=== PATIENT | male | born 1970 | race Caucasian/White ===

== ENCOUNTER 2017-12-18 11:47 | Observation (INO) | payer OTHER ==
[2017-12-18] MEDS ORDERED: Ondansetron 4 MG/2 ML SDV IVPUSH ONE (12:00)
[2017-12-18] MEDS ORDERED: Sodium Chloride 0.9% 1,000 ML IV ONE (12:00)
[2017-12-18] MEDS ORDERED: Aspirin 81 MG Tab.Chew PO ONE (12:16)
--- NOTE | 2017-12-18 12:16 | EDM.PDOC ---
ED HPI GENERAL MEDICAL PROBLEM - General Chief Complaint: Syncope Stated Complaint: VOMITING Time Seen by Provider: 12/18/17 11:59 Source of Information: Reports: Patient History Limitations: Reports: No Limitations - History of Present Illness INITIAL COMMENTS - FREE TEXT/NARRATIVE: HISTORY AND PHYSICAL: History of present illness: Patient is a 47-year-old male who presents to the emergency room today with complaints of dizziness, nausea and feeling of lightheaded. 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 Reports "I thought I was in a passout". Did have 1 episode of diarrhea. Since that time his symptoms have resolved but still feels "somewhat lightheaded". He denies any chest pain, shortness of breath, abdominal pain, fever or chills. Has not received the influenza vaccine this year. Patient does have a history of cardiac bypass, MT, hypertension, type 2 diabetes. Review of systems: As per history of present illness and below otherwise all systems reviewed and negative. Past medical history: As per history of present illness and as reviewed below otherwise noncontributory. Surgical history: As per history of present illness and as reviewed below otherwise noncontributory. Social history: No reported history of drug or alcohol abuse. Family history: As per history of present illness and as reviewed below otherwise noncontributory. Physical exam: HEENT: Atraumatic, normocephalic, pupils reactive, negative for conjunctival pallor or scleral icterus, mucous membranes moist, throat clear, neck supple, nontender, trachea midline. Lungs: Clear to auscultation, breath sounds equal bilaterally, chest nontender. Heart: S1S2, regular, negative for clicks, rubs, or JVD. Abdomen: Soft, nondistended, nontender. Negative for masses or hepatosplenomegaly. Negative for costovertebral tenderness. Pelvis: Stable nontender. Genitourinary: Deferred. Rectal: Deferred. Extremities: Atraumatic, negative for cords or calf pain. Neurovascular unremarkable. Neuro: Awake, alert, oriented. Cranial nerves II through XII unremarkable. Cerebellum unremarkable. Motor and sensory unremarkable throughout. Exam nonfocal. Patient denies any chest pain or shortness of breath. Blood pressure is 158/ 109. He states he has not been taking his medications for the past week, noncompliant. History of smoking, one pack per day, 20 years. Denies any drug or alcohol abuse. Blood pressure has come down to within normal limits. Lab work, x-ray of the chest and EKG are unremarkable. Did offer the patient admission. The states she would like him to stay overnight as she does not feel comfortable taking him home. Patient is pain-free vital signs are stable. Dr. Rivas was consult on this case and is agreeable to keep him for observation with telemetry. Diagnostics: CBC, CMP, troponin, EKG, 1 view chest x-ray Therapeutics: IV fluid, Zofran Impression: #1 Near syncope #2 History of coronary artery disease Plan: 1. Observation admission with telemetry Definitive disposition and diagnosis as appropriate pending reevaluation and review of above. Onset: Today Duration: Hour(s): Location: Reports: Chest - Related Data Allergies Allergy/AdvReac Type Severity Reaction Status Date / Time No Known Allergies Allergy Verified 12/18/17 11:58 Home Meds: Home Meds atorvaSTATin [Lipitor] 40 mg PO BEDTIME #20 tab 12/19/17 [Rx] Past Medical History HEENT History: Reports: None Cardiovascular History: Reports: Hypertension, MT Respiratory History: Reports: None Gastrointestinal History: Reports: None Genitourinary History: Reports: Prostate Disorder Neurological History: Reports: Migraines Other Neuro History: trigeminal myalgia Psychiatric History: Reports: None Endocrine/Metabolic History: Reports: Diabetes, Type II Dermatologic History: Reports: None - Infectious Disease History Infectious Disease History: Reports: Chicken Pox, Influenza - Past Surgical History Cardiovascular Surgical History: Reports: Coronary Artery Bypass Musculoskeletal Surgical History: Reports: Arthroscopic Knee, Shoulder Surgery Social & Family History - Family History HEENT: Reports: Impaired Vision Cardiac: Reports: High Cholesterol, Hypertension Respiratory: Reports: Asthma OBGYN: Reports: Endocrine/Metabolic: Reports: Diabetes, type II Oncologic: Reports: Colon, Lung - Tobacco Use Smoking Status *Q: Current Every Day Smoker Years of Tobacco use: 20 Packs/Tins Daily: 1 Second Hand Smoke Exposure: No - Alcohol Use Days Per Week of Alcohol Use: 0 - Recreational Drug Use Recreational Drug Use: No Recreational Drug Type: Reports: Marijuana/Hashish Recreational Drug Use Frequency: Rarely ED ROS GENERAL - Review of Systems Review Of Systems: ROS reveals no pertinent complaints other than HPI. ED EXAM, NEURO - Physical Exam Exam: See Below (See dictation) Course - Vital Signs Last Recorded V/S: Last Vital Signs Temp 97.8 F 12/19/17 12:00 Pulse 77 12/19/17 12:00 Resp 18 12/19/17 12:00 BP 145/101 H 12/19/17 12:00 Pulse Ox 94 L 12/19/17 14:49 - Orders/Labs/Meds Labs: Laboratory Tests 12/18/17 12/18/17 12/18/17 Range/Units 12:15 12:15 12:15 WBC 9.70 (4.0-11.0) K/uL RBC 5.21 (4.50-5.90) M/uL Hgb 16.4 (13.0-17.0) g/dL Hct 46.9 (38.0-50.0) % MCV 90.0 (80.0-98.0) fL MCH 31.5 (27.0-32.0) pg MCHC 35.0 (31.0-37.0) g/dL RDW Std Deviation 41.8 (28.0-62.0) fl RDW Coeff of Liat 13 (11.0-15.0) % Plt Count 306 (150-400) K/uL MPV 10.00 (7.40-12.00) fL Neut % (Auto) 71.9 (48.0-80.0) % Lymph % (Auto) 22.4 (16.0-40.0) % [place] % (Auto) 4.5 (0.0-15.0) % Eos % (Auto) 0.7 (0.0-7.0) % Baso % (Auto) 0.5 (0.0-1.5) % Neut # (Auto) 7.0 H (1.4-5.7) K/uL Lymph # (Auto) 2.2 (0.6-2.4) K/uL [place] # (Auto) 0.4 (0.0-0.8) K/uL Eos # (Auto) 0.1 (0.0-0.7) K/uL Baso # (Auto) 0.1 (0.0-0.1) K/uL Nucleated RBC % 0.0 /100WBC Nucleated RBCs # 0 K/uL Sodium 138 (136-146) mmol/L Potassium 4.2 (3.5-5.1) mmol/L Chloride 107 (98-110) mmol/L Carbon Dioxide 21 (21-31) mmol/L BUN 15 (6.0-23.0) mg/dL Creatinine 0.8 (0.6-1.5) mg/dL Est Cr Clr Drug Dosing 101.90 mL/min Estimated GFR (MDRD) > 60.0 ml/min Glucose 128 H (60-110) mg/dL Hemoglobin A1c 7.0 H (0.0-6.0) % Calcium 9.3 (8.8-10.8) mg/dL Total Bilirubin 0.3 (0.1-1.5) mg/dL AST 15 (5-40) IU/L ALT 17 (8-54) IU/L Alkaline Phosphatase 103 (40-150) Troponin I < 0.10 (0.0-0.29) NG/ML Total Protein 7.4 (6.0-8.0) g/dL Albumin 4.3 (3.5-5.0) g/dL Globulin 3.1 (2.0-3.5) g/dL Albumin/Globulin Ratio 1.4 (1.3-2.8) Amylase 51 (10-90) U/L Lipase 21 (7-80) U/L Meds: Medications Discontinued Medications Generic Name Dose Route Start Last Admin Trade Name Freq PRN Reason Stop Dose Admin Acetaminophen 650 mg 12/18/17 14:49 12/19/17 12:23 Tylenol PO 650 mg Q4H PRN Administration Pain (Mild 1-3)/fever Aspirin 324 mg 12/18/17 12:16 12/18/17 12:33 Aspirin PO 12/18/17 12:17 324 mg ONETIME ONE Administration Enoxaparin Sodium 40 mg 12/18/17 15:00 12/18/17 16:43 Lovenox SUBCUT 40 mg Q24H ELEANOR Administration Sodium Chloride 1,000 mls @ 999 mls/hr 12/18/17 12:00 12/18/17 12:41 Normal Saline IV 12/18/17 13:00 999 mls/hr STAT ONE Administration Sodium Chloride 1,000 mls @ 100 mls/hr 12/18/17 15:00 12/19/17 11:57 Normal Saline IV 100 mls/hr ASDIRECTED ELEANOR Administration Insulin Aspart 0 unit 12/18/17 17:00 12/19/17 11:39 Novolog SUBCUT Not Given TIDAC [facility] Protocol Morphine Sulfate 2 mg 12/18/17 14:49 Morphine IVPUSH 12/19/17 14:51 Q2H PRN Pain (severe 7-10) Ondansetron HCl 4 mg 12/18/17 12:00 12/18/17 12:43 Zofran IVPUSH 12/18/17 12:01 4 mg ONETIME ONE Administration Ondansetron HCl 4 mg 12/18/17 14:49 Zofran Odt PO Q4H PRN nausea, able to take PO Ondansetron HCl 4 mg 12/18/17 14:49 Zofran IVPUSH Q4H PRN Nausea Temazepam 15 mg 12/18/17 14:49 Restoril PO BEDTIME PRN Sleep Departure - Departure Time of Disposition: 13:02 Disposition: Refer to Observation Clinical Impression: Near syncope, History of coronary artery disease - Discharge Information
[2017-12-18 12:40] LABS: CHLORIDE,CL 107 mmol/L (98-110); SODIUM,NA 138 mmol/L (136-146)
--- NOTE | 2017-12-18 14:18 | PCM.HP ---
H&P History of Present Illness - General Date of Service: 12/18/17 Admit Problem/Dx: Near syncope - History of Present Illness Initial Comments - Free Text/Narative: 47-year-old male presenting to emergency department with chief complaint of dizziness, lightheadedness, and nausea and vomiting 1 with past medical history of PA, CABG 5, hypertension, and type 2 diabetes Patient states that when he went to work at 0400 this morning he started to feel nauseous with some dizziness and blurred vision. He felt as though he may pass out. States that he called his who came and picked him up. On his way back to [facility] he did have one episode of emesis. Subsequently his brought him to the emergency department for further evaluation. States that he has had some achy joints in his wrists and elbows. Denies any chest pain or shortness of breath. He did have a PA approximately 2 years ago where he received a CABG 5 in [place]. 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 He does see Dr. Callejas as his primary care physician. He reports no associated diaphoresis but has had a cough with pale whitish sputum production. He also states that he has had heartburn over the past 2 weeks and has been taking Pepcid for this. He has a history of migraines for which she takes Excedrin 4 tabs up to 3-4 times a day sometimes. Patient also reports paroxysmal nocturnal dyspnea, orthopnea, but no pedal edema or shortness of breath with exercise. He did have one episode of diarrhea this morning. Patient is a current [id number] smoker. Denies any illicit drug use. Currently denies any chest pain, palpitations, shortness of breath, syncopal episodes, or focal neurologic deficits. In the emergency department: CBC, CMP, chest x-ray, vital signs were all unremarkable. Troponin was negative at 12:15. Influenza screen was negative. I did add a A1c onto the labs which was elevated at 7.0., Amylase and lipase were unremarkable. He was given 324 mg ASA as well as 4 mg IV Zofran and 1 L normal saline in the emergency department. Patient was admitted for near syncope. - Related Data Allergies/Adverse Reactions: Allergies Allergy/AdvReac Type Severity Reaction Status Date / Time No Known Allergies Allergy Verified 12/18/17 11:58 Home Medications: Home Meds . [Unable to Verify Home Med List] 12/18/17 [History] Past Medical History HEENT History: Reports: None Cardiovascular History: Reports: Hypertension, PA Respiratory History: Reports: None Gastrointestinal History: Reports: None Genitourinary History: Reports: Prostate Disorder Neurological History: Reports: Migraines Other Neuro History: trigeminal myalgia Psychiatric History: Reports: None Endocrine/Metabolic History: Reports: Diabetes, Type II Dermatologic History: Reports: None - Infectious Disease History Infectious Disease History: Reports: Chicken Pox, Influenza - Past Surgical History Cardiovascular Surgical History: Reports: Coronary Artery Bypass Musculoskeletal Surgical History: Reports: Arthroscopic Knee, Shoulder Surgery Social & Family History - Family History HEENT: Reports: Impaired Vision Cardiac: Reports: High Cholesterol, Hypertension Respiratory: Reports: Asthma OBGYN: Reports: Endocrine/Metabolic: Reports: Diabetes, type II Oncologic: Reports: Colon, Lung - Tobacco Use Smoking Status *Q: Current Every Day Smoker Years of Tobacco use: 20 Packs/Tins Daily: 1 Second Hand Smoke Exposure: No - Alcohol Use Days Per Week of Alcohol Use: 0 - Recreational Drug Use Recreational Drug Use: No Recreational Drug Type: Reports: Marijuana/Hashish Recreational Drug Use Frequency: Rarely H&P Review of Systems - Review of Systems: Review Of Systems: See Below General: Denies: Fever, Chills, Weakness, Fatigue HEENT: Denies: Dysphasia, Headaches, Sinus Congestion, Sore Throat Pulmonary: Reports: Cough, Sputum. Denies: Shortness of Breath, Wheezing, Pleuritic Chest Pain Cardiovascular: Reports: Dyspnea on Exertion, Lightheadedness. Denies: Chest Pain, Palpitations, Syncope Gastrointestinal: Reports: Diarrhea, Nausea, Vomiting. Denies: Abdominal Pain, Black Stool, Bloody Stool Genitourinary: Denies: Dysuria, Hematuria Musculoskeletal: Denies: Neck Pain, Leg Pain Skin: Denies: Cyanosis Psychiatric: Denies: Confusion Neurological: Reports: Dizziness. Denies: Confusion, Headache Hematologic/Lymphatic: Denies: Anemia Exam - Exam Exam: See Below - Vital Signs Vital Signs: Last Vital Signs Temp 97.0 F 12/18/17 12:00 Pulse 79 12/18/17 12:44 Resp 18 12/18/17 12:44 BP 135/93 H 12/18/17 12:44 Pulse Ox 97 12/18/17 12:44 Weight: 87 kg - Exam Quality Assessment: DVT Prophylaxis General: Alert, Oriented, Cooperative HEENT: Conjunctiva Clear, EACs Clear, EOMI, Hearing Intact, Mucosa Moist & [place] , Nares Patent, Normal Nasal Septum, Posterior Pharynx Clear, PERRLA Neck: Supple, Trachea Midline, 2 Lungs: Clear to Auscultation, Normal Respiratory Effort Cardiovascular: Regular Rate, Regular Rhythm, Normal S1, Normal S2, Systolic Murmur GI/Abdominal Exam: Normal Bowel Sounds, Soft, Non-Tender, No Organomegaly, No Distention (Male) Exam: Deferred Back Exam: Normal Inspection, Full Range of Motion, NT Extremities: Normal Inspection, Normal Range of Motion, Non-Tender, No Pedal Edema, Normal Capillary Refill Peripheral Pulses: 2+: Radial (L), Radial (R), Posterior Tibial (L), Posterior Tibial (R), Dorsalis Pedis (L), Dorsalis Pedis (R) Skin: Warm, Dry, Intact Neurological: Cranial Nerves Intact Neuro Extensive - Mental Status: Alert, Oriented x3, Normal Mood/Affect, Normal Cognition Neuro Extensive - Motor, Sensory, Reflexes: CN II-XII Intact Psychiatric: Alert, Normal Affect, Normal Mood - Patient Data Result Diagrams: 12/18/17 12:15 12/18/17 12:15 *Q Meaningful Use (ADM) - VTE *Q VTE Criteria *Q: - Stroke *Q Stroke Criteria *Q: - AMI *Q AMI Criteria *Q: - Problem List (1) S/P coronary artery bypass graft x 5 SNOMED Code(s): 031380218 ICD Code: Z95.1 - PRESENCE OF AORTOCORONARY BYPASS GRAFT Status: Chronic Priority: Medium Current Visit: Yes (2) Type 2 diabetes mellitus SNOMED Code(s): 06557426 ICD Code: E11.9 - TYPE 2 DIABETES MELLITUS WITHOUT COMPLICATIONS Status: Chronic Priority: Medium Current Visit: Yes Qualifiers: Diabetes mellitus complication status: without complication Diabetes mellitus intermodal truck driver insulin use: without alf use Qualified Code(s): E11.9 - Type 2 diabetes mellitus without complications (3) History of coronary artery disease SNOMED Code(s): 645659063 ICD Code: Z86.79 - PERSONAL HISTORY OF OTHER DISEASES OF THE CIRCULATORY SYSTEM Status: Chronic Priority: Medium Current Visit: Yes (4) Near syncope SNOMED Code(s): 637824106 ICD Code: R55 - SYNCOPE AND COLLAPSE Status: Acute Priority: High Current Visit: Yes (5) History of PA (myocardial infarction) SNOMED Code(s): 936618195 ICD Code: I25.2 - OLD MYOCARDIAL INFARCTION Status: Chronic Priority: Medium Current Visit: Yes (6) Hypertension SNOMED Code(s): 85243321 ICD Code: I10 - ESSENTIAL (PRIMARY) HYPERTENSION Status: Chronic Priority : Medium Current Visit: Yes Qualifiers: Hypertension type: essential hypertension Qualified Code(s): I10 - Essential (primary) hypertension Problem List Initiated/Reviewed/Updated: Yes Assessment/Plan Comment:: 47-year-old male admitted 12/18/17 for near syncope with past medical history of PA, CABG 5, hypertension, and type 2 diabetes. Near syncope: Patient appears to be somewhat dehydrated on exam. Influenza was negative. Likely gastroenteritis leading to volume depletion and near syncopal episode. Secondary to patient's past medical history we will place on telemetry and trend troponins as he states that he had similar symptoms when he had his PA in the past. Initial troponin negative and no signs acute ischemia on ECG. Reports no chest pain, palpitations, shortness breath at this time. Hypertension/PA/CABG 5: Patient appears not to be taking his home medications. He does see Dr. Callejas as his PCP but has not seen a music education adjunct professor since his PA 2 years ago. We will get a lipid panel as well as trend troponins and monitor on telemetry. Patient does have symptoms of orthopnea, paroxysmal nocturnal dyspnea and has significant cardiac history. We will get an echocardiogram to assess for possible heart failure which could've also contributed to his near syncopal event. We will monitor his blood pressure and look to see what the medications he was on previously. We will restart medications as vol depletion is resolved and blood pressure returns to his normal levels. Type 2 diabetes: States that he does take a medication that he thinks his metformin. Did get an A1c which was 7.0. Will [address] on insulin sliding scale low -dose. May have diabetic education come and talk with the patient. VTE: Lovenox, SCD Dispo: 1-2 days pending.
[2017-12-18] MEDS ORDERED: Ondansetron 4 MG Tab.DIS PO PRN (14:49)
[2017-12-18] MEDS ORDERED: Morphine 2 MG/ML Syringe IVPUSH PRN (14:49)
[2017-12-18] MEDS ORDERED: Ondansetron 4 MG/2 ML SDV IVPUSH PRN (14:49)
[2017-12-18] MEDS ORDERED: Temazepam 15 MG Cap PO PRN (14:49)
[2017-12-18] MEDS ORDERED: Enoxaparin 40 MG/0.4 ML Syringe SUBCUT SCH (15:00)
[2017-12-18] MEDS: Sodium Chloride 0.9% 1,000 ML IV SCH (15:30)
[2017-12-18] MEDS: Insulin Aspart 100 Units/ML 3 ML Pen SUBCUT SCH (21:51)
[2017-12-19] MEDS: Sodium Chloride 0.9% 1,000 ML IV SCH ×2 (01:49→11:57)
[2017-12-19] MEDS: Insulin Aspart 100 Units/ML 3 ML Pen SUBCUT SCH ×2 (06:38→11:39)
[2017-12-19 06:58] LABS: CHLORIDE,CL 110 mmol/L (98-110); SODIUM,NA 140 mmol/L (136-146)
[2017-12-19] MEDS: Acetaminophen 325 MG Tab PO PRN ×2 (08:24→12:23)
[2017-12-19 12:46] VITALS: BP 145/101
--- NOTE | 2017-12-19 13:23 | PCM.DCSUM1 ---
Discharge Summary - Discharge Data Discharge Date: 12/19/17 Discharge Disposition: Home, Self-Care 01 Condition: Good - Patient Summary/Data Hospital Course: 47-year-old male admitted for near syncope due to dehydration fromgastroenteritis He presented with one day history of of dizziness, lightheadedness, and nausea and vomiting. BMP, CBC and CXR were unremarkable. He received IV fluids with resoluiton of symptoms. He ruled out for acute coronary syndrome with seral negative cardiac enzymes and EKG. Due to his histoyr of of [place], CABG 5, hypertension, and type 2 diabetes he was restarted on a statin. He is being discharge to today to have follow up with [facility]. - Patient Instructions Diet: Heart Healthy Diet - Discharge Plan Prescriptions/Med Rec: atorvaSTATin [Lipitor] 40 mg PO BEDTIME #20 tab Home Medications: Home Meds atorvaSTATin [Lipitor] 40 mg PO BEDTIME #20 tab 12/19/17 [Rx] Patient Handouts: Near-Syncope, [id number] - Patient Data Vitals - Most Recent: Last Vital Signs Temp 36.6 C 12/19/17 12:00 Pulse 77 12/19/17 12:00 Resp 18 12/19/17 12:00 BP 145/101 H 12/19/17 12:00 Pulse Ox 94 L 12/19/17 12:00 Weight - Most Recent: 87 kg I&O - Last 24 hours: Intake & Output 12/18/17 12/19/17 12/19/17 22:59 06:59 14:59 Intake Total 1618 Output Total 400 Balance 1218 Lab Results - Last 24 hrs: Laboratory Results - last 24 hr 12/18/17 12/18/17 12/19/17 Range/Units 18:11 21:41 00:23 WBC (4.0-11.0) K/uL RBC (4.50-5.90) M/uL Hgb (13.0-17.0) g/dL Hct (38.0-50.0) % MCV (80.0-98.0) fL MCH (27.0-32.0) pg MCHC (31.0-37.0) g/dL RDW Std Deviation (28.0-62.0) fl RDW Coeff of Liat (11.0-15.0) % Plt Count (150-400) K/uL MPV (7.40-12.00) fL Neut % (Auto) (48.0-80.0) % Lymph % (Auto) (16.0-40.0) % [place] % (Auto) (0.0-15.0) % Eos % (Auto) (0.0-7.0) % Baso % (Auto) (0.0-1.5) % Neut # (Auto) (1.4-5.7) K/uL Lymph # (Auto) (0.6-2.4) K/uL [place] # (Auto) (0.0-0.8) K/uL Eos # (Auto) (0.0-0.7) K/uL Baso # (Auto) (0.0-0.1) K/uL Nucleated RBC % /100WBC Nucleated RBCs # K/uL Sodium (136-146) mmol/L Potassium (3.5-5.1) mmol/L Chloride (98-110) mmol/L Carbon Dioxide (21-31) mmol/L BUN (6.0-23.0) mg/dL Creatinine (0.6-1.5) mg/dL Est Cr Clr Drug Dosing mL/min Estimated GFR (MDRD) ml/min Glucose (60-110) mg/dL POC Glucose 76 (60-110) mg/dL Calcium (8.8-10.8) mg/dL Magnesium (1.5-2.3) mEq/L Troponin I < 0.10 < 0.10 (0.0-0.29) NG/ML Triglycerides (10-190) mg/dL Cholesterol (131-240) mg/dL LDL Cholesterol, Calc (60-180) mg/dL VLDL Cholesterol (5-55) mg/dL HDL Cholesterol (40-80) mg/dL Cholesterol/HDL Ratio (3.3-6.0) Urine Color Urine Appearance Urine pH (5.0-8.0) Ur Specific [place] (1.001-1.035) Urine Protein (NEGATIVE) mg/dL Urine Glucose (UA) (NEGATIVE) mg/dL Urine Ketones (NEGATIVE) mg/dL Urine Occult Blood (NEGATIVE) Urine Nitrite (NEGATIVE) Urine Bilirubin (NEGATIVE) Urine Urobilinogen (<2.0) EU/dL Ur Leukocyte Esterase (NEGATIVE) Urine RBC (0-2/HPF) Urine WBC (0-5/HPF) Ur Epithelial Cells (NONE-FEW) Urine Bacteria (NEGATIVE) 12/19/17 12/19/17 12/19/17 Range/Units 03:21 06:07 06:10 WBC 8.10 (4.0-11.0) K/uL RBC 5.01 (4.50-5.90) M/uL Hgb 15.6 (13.0-17.0) g/dL Hct 46.1 (38.0-50.0) % MCV 92.0 (80.0-98.0) fL MCH 31.1 (27.0-32.0) pg MCHC 33.8 (31.0-37.0) g/dL RDW Std Deviation 42.8 (28.0-62.0) fl RDW Coeff of Liat 13 (11.0-15.0) % Plt Count 265 (150-400) K/uL MPV 10.00 (7.40-12.00) fL Neut % (Auto) 52.6 (48.0-80.0) % Lymph % (Auto) 36.4 (16.0-40.0) % [place] % (Auto) 5.8 (0.0-15.0) % Eos % (Auto) 4.7 (0.0-7.0) % Baso % (Auto) 0.5 (0.0-1.5) % Neut # (Auto) 4.3 (1.4-5.7) K/uL Lymph # (Auto) 3.0 H (0.6-2.4) K/uL [place] # (Auto) 0.5 (0.0-0.8) K/uL Eos # (Auto) 0.4 (0.0-0.7) K/uL Baso # (Auto) 0.0 (0.0-0.1) K/uL Nucleated RBC % 0.0 /100WBC Nucleated RBCs # 0 K/uL Sodium (136-146) mmol/L Potassium (3.5-5.1) mmol/L Chloride (98-110) mmol/L Carbon Dioxide (21-31) mmol/L BUN (6.0-23.0) mg/dL Creatinine (0.6-1.5) mg/dL Est Cr Clr Drug Dosing mL/min Estimated GFR (MDRD) ml/min Glucose (60-110) mg/dL POC Glucose 92 (60-110) mg/dL Calcium (8.8-10.8) mg/dL Magnesium (1.5-2.3) mEq/L Troponin I (0.0-0.29) NG/ML Triglycerides (10-190) mg/dL Cholesterol (131-240) mg/dL LDL Cholesterol, Calc (60-180) mg/dL VLDL Cholesterol (5-55) mg/dL HDL Cholesterol (40-80) mg/dL Cholesterol/HDL Ratio (3.3-6.0) Urine Color YELLOW Urine Appearance CLEAR Urine pH 6.0 (5.0-8.0) Ur Specific [place] 1.010 (1.001-1.035) Urine Protein NEGATIVE (NEGATIVE) mg/dL Urine Glucose (UA) NEGATIVE (NEGATIVE) mg/dL Urine Ketones NEGATIVE (NEGATIVE) mg/dL Urine Occult Blood NEGATIVE (NEGATIVE) Urine Nitrite NEGATIVE (NEGATIVE) Urine Bilirubin NEGATIVE (NEGATIVE) Urine Urobilinogen 0.2 (<2.0) EU/dL Ur Leukocyte Esterase NEGATIVE (NEGATIVE) Urine RBC NONE SEEN (0-2/HPF) Urine WBC 0-1 (0-5/HPF) Ur Epithelial Cells NOT SEEN (NONE-FEW) Urine Bacteria FEW (NEGATIVE) 12/19/17 12/19/17 Range/Units 06:10 11:29 WBC (4.0-11.0) K/uL RBC (4.50-5.90) M/uL Hgb (13.0-17.0) g/dL Hct (38.0-50.0) % MCV (80.0-98.0) fL MCH (27.0-32.0) pg MCHC (31.0-37.0) g/dL RDW Std Deviation (28.0-62.0) fl RDW Coeff of Liat (11.0-15.0) % Plt Count (150-400) K/uL MPV (7.40-12.00) fL Neut % (Auto) (48.0-80.0) % Lymph % (Auto) (16.0-40.0) % [place] % (Auto) (0.0-15.0) % Eos % (Auto) (0.0-7.0) % Baso % (Auto) (0.0-1.5) % Neut # (Auto) (1.4-5.7) K/uL Lymph # (Auto) (0.6-2.4) K/uL [place] # (Auto) (0.0-0.8) K/uL Eos # (Auto) (0.0-0.7) K/uL Baso # (Auto) (0.0-0.1) K/uL Nucleated RBC % /100WBC Nucleated RBCs # K/uL Sodium 140 (136-146) mmol/L Potassium 4.2 (3.5-5.1) mmol/L Chloride 110 (98-110) mmol/L Carbon Dioxide 23 (21-31) mmol/L BUN 10 (6.0-23.0) mg/dL Creatinine 0.8 (0.6-1.5) mg/dL Est Cr Clr Drug Dosing 101.90 mL/min Estimated GFR (MDRD) > 60.0 ml/min Glucose 98 (60-110) mg/dL POC Glucose 138 H (60-110) mg/dL Calcium 8.6 L (8.8-10.8) mg/dL Magnesium 1.6 (1.5-2.3) mEq/L Troponin I (0.0-0.29) NG/ML Triglycerides 185 (10-190) mg/dL Cholesterol 298 H (131-240) mg/dL LDL Cholesterol, Calc 233 H (60-180) mg/dL VLDL Cholesterol 37 (5-55) mg/dL HDL Cholesterol 28 L (40-80) mg/dL Cholesterol/HDL Ratio 10.6 H (3.3-6.0) Urine Color Urine Appearance Urine pH (5.0-8.0) Ur Specific [place] (1.001-1.035) Urine Protein (NEGATIVE) mg/dL Urine Glucose (UA) (NEGATIVE) mg/dL Urine Ketones (NEGATIVE) mg/dL Urine Occult Blood (NEGATIVE) Urine Nitrite (NEGATIVE) Urine Bilirubin (NEGATIVE) Urine Urobilinogen (<2.0) EU/dL Ur Leukocyte Esterase (NEGATIVE) Urine RBC (0-2/HPF) Urine WBC (0-5/HPF) Ur Epithelial Cells (NONE-FEW) Urine Bacteria (NEGATIVE) TAMIKA Results - Last 24 hrs: Microbiology 12/18/17 15:30 Influenza Type A Antigen Screen - Final Nasopharyngeal Swab NEGATIVE INFLUENZA A VIRUS AG Influenza Type B Antigen Screen - Final NEGATIVE INFLUENZA B VIRUS AG Med Orders - Current: Current Medications Acetaminophen (Tylenol) 650 mg PO Q4H PRN PRN Reason: Pain (Mild 1-3)/fever Last Admin: 12/19/17 12:23 Dose: 650 mg Enoxaparin Sodium (Lovenox) 40 mg SUBCUT Q24H [facility] Last Admin: 12/18/17 16:43 Dose: 40 mg Sodium Chloride (Normal Saline) 1,000 mls @ 100 mls/hr IV ASDIRECTED [facility] Last Admin: 12/19/17 11:57 Dose: 100 mls/hr Insulin Aspart (Novolog) 0 unit SUBCUT TIDAC [facility] PRN Reason: Protocol Last Admin: 12/19/17 11:39 Dose: Not Given Morphine Sulfate (Morphine) 2 mg IVPUSH Q2H PRN PRN Reason: Pain (severe 7-10) Stop: 12/19/17 14:51 Ondansetron HCl (Zofran Odt) 4 mg PO Q4H PRN PRN Reason: nausea, able to take PO Ondansetron HCl (Zofran) 4 mg IVPUSH Q4H PRN PRN Reason: Nausea Temazepam (Restoril) 15 mg PO BEDTIME PRN PRN Reason: Sleep Discontinued Medications Aspirin (Aspirin) 324 mg PO ONETIME ONE Stop: 12/18/17 12:17 Last Admin: 12/18/17 12:33 Dose: 324 mg Sodium Chloride (Normal Saline) 1,000 mls @ 999 mls/hr IV STAT ONE Stop: 12/18/17 13:00 Last Admin: 12/18/17 12:41 Dose: 999 mls/hr Ondansetron HCl (Zofran) 4 mg IVPUSH ONETIME ONE Stop: 12/18/17 12:01 Last Admin: 12/18/17 12:43 Dose: 4 mg *Q Meaningful Use (DIS) - VTE *Q VTE Criteria *Q: - Stroke *Q Stroke Criteria *Q: - AMI *Q AMI Criteria *Q:
--- NOTE | 2017-12-20 14:14 | CR ---
EXAM DATE: 12/18/17 PATIENT'S AGE: 47 Patient: JHONNY CHUN Facility: [place], [place] Site . Site : 1970 Study: XRay Chest [id number]/27/2018 12:24:54 PM Ordering Physician: Doctor Gonsalves Final Report: INDICATION: Pain. Shortness of breath. Cough. TECHNIQUE: AP portable chest x-ray. FINDINGS: Sternotomy. Heart size normal. Lungs clear. Chest otherwise negative without acute disease. Dictated by Marco Melvin MD @ Dec 18 2017 12:52PM (Electronic Signature) Report Signed by Proxy. AUGUSTO
== END 2017-12-19 15:55 | disposition home or self-care (01) ==
LOC: MW.ED 11:47 → MW.MS 13:03
PROVIDERS: ADMIT Family Medicine; ATTEND Family Medicine
DX: K52.9 Noninfective gastroenteritis and colitis, unspecified (principal); E86.0 Dehydration; I25.2 Old myocardial infarction; I10 Essential (primary) hypertension; E11.9 Type 2 diabetes mellitus without complications; F17.210 Nicotine dependence, cigarettes, uncomplicated; Z95.1 Presence of aortocoronary bypass graft; Z86.79 Personal history of other diseases of the circulatory system
CPT/HCPCS: 36415; 71045; 80048; 80053; 80061; 81001; 82150; 82962; 83036; 83690; 83735; 84484; 85025; 87086; 87804; 93005; 96361; 96372; 96374; 99285; A9270; G0378; J1650; J2405; J7040; 99284

== ENCOUNTER 2018-05-25 14:22 | Emergency (ER) | payer OTHER ==
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
[2018-05-25] MEDS ORDERED: Lidocaine 1% 20 ML MDV INJECT ONE (15:04)
[2018-05-25] MEDS ORDERED: Lidocaine 1% 50 ML MDV INJECT ONE (15:15)
[2018-05-25] MEDS ORDERED: Cephalexin 500 MG Cap PO ONE (16:43)
[2018-05-25] MEDS ORDERED: Bacitracin Oint 1 GM U/D Packet TOP ONE (16:46)
[2018-05-25 16:55] VITALS: BP 142/100
[2018-05-25] MEDS ORDERED: Bacitracin Oint 28.35 GM Tube TOP SCH (22:00)
--- NOTE | 2018-05-26 10:25 | CR ---
EXAM DATE: 05/25/18 PATIENT'S AGE: 48 Patient: JHONNY CHUN Facility: [place], [place] Site . Site : 1970 Study: XRay Extremity Left hand [id number]/4/[id number] 3:32:53 PM Ordering Physician: Doctor Gonsalves Final Report: INDICATION: Pain after trauma. TECHNIQUE: Two views. IMPRESSION: No fracture or bone lesion. No radiopaque foreign body. Joint spaces are in anatomic alignment. Dictated by Erik Zendejas MD @ May 25 2018 3:34PM (Electronic Signature) Report Signed by Proxy. AUGUSTO
== END 2018-05-25 16:55 | disposition home or self-care (01) ==
LOC: MW.ED 14:22
DX: S61.442A Puncture wound with foreign body of left hand, initial encounter (principal); I10 Essential (primary) hypertension; I25.2 Old myocardial infarction; E11.9 Type 2 diabetes mellitus without complications; W45.8XXA Other foreign body or object entering through skin, initial encounter
CPT/HCPCS: 10120; 73120; 99283; A9270